=== PATIENT | female | born 1965 | race Caucasian/White ===

== ENCOUNTER 2016-10-07 17:04 | Emergency (ER) | payer OTHER ==
[~2016-10-07] VITALS: Ht 165.1 cm; Wt 80.5 kg
[~2016-10-07 17:04] MED LIST: CITA20TA11 PO; CITROMA PO; DOCU-144 PO; FERR-55 PO; GLYC1SUP92 PR; LOSA50TA6 PO
[2016-10-07 17:06] VITALS: Ht 165.1 cm; Wt 80.5 kg
[2016-10-07] MEDS ORDERED: BELLADONNA/PHENOBARBITAL TAB PO STA (19:54)
[2016-10-07] MEDS ORDERED: SOD CHLORIDE 0.9% 1,000 ML IV STA (19:54)
[2016-10-07] MEDS ORDERED: FAMOTIDINE 20 MG TAB PO STA (19:54)
[2016-10-07] MEDS ORDERED: KETOROLAC 15 MG INJ IV STA (19:54)
[2016-10-07] MEDS ORDERED: ONDANSETRON 4 MG INJ IV STA (19:54)
[2016-10-07] MEDS ORDERED: LIDOCAINE/MYLANTA 40 ML BTL PO STA (19:54)
[2016-10-07 20:02] LABS: URINE BLOOD (Dip) POC 1+ (NEGATIVE)
[2016-10-07 20:22] LABS: ADD SCAN DIFF NO
[2016-10-07 20:28] LABS: BASOPHIL # 0.1 10^3/ul (0.0-0.1); BASOPHILS % 0.8 % (0.0-2.0); EOSINOPHILS # 0.1 10^3/ul (0.0-0.5); EOSINOPHILS % 1.9 % (0.0-7.0); HEMATOCRIT 36.4 % (37.0-47.0); HEMOGLOBIN 11.3 g/dl (12.0-16.0); LYMPHOCYTES # 2.3 10^3/ul (0.8-2.9); LYMPHOCYTES % 35.7 % (15.0-51.0); MEAN CORPUSCULAR VOLUME 87.1 fl (82.0-101.0); MEAN PLATELET VOLUME 9.5 fl (7.4-10.4); MONOCYTE # 0.7 10^3/ul (0.3-0.9); MONOCYTES % 10.5 % (0.0-11.0); NEUTROPHIL # 3.3 10^3/ul (1.6-7.5); NEUTROPHILS % 50.9 % (39.0-77.0); PLATELET COUNT 323 10^3/UL (140-415); RED BLOOD COUNT 4.18 10^6/ul (4.20-5.40); RED CELL DISTRIBUTION WIDTH 12.7 % (11.5-14.5); WHITE BLOOD COUNT 6.5 10^3/ul (4.8-10.8)
[2016-10-07 20:29] LABS: ADD UMIC YES; URINE BILIRUBIN (Dip) NEGATIVE (NEGATIVE); URINE BLOOD (Dip) 1+ (NEGATIVE); URINE COLOR LT. YELLOW (YELLOW); URINE GLUCOSE (Dip) NEGATIVE (NEGATIVE); URINE KETONES (Dip) NEGATIVE (NEGATIVE); URINE LEUKOCYTE ESTERASE (Dip) NEGATIVE (NEGATIVE); URINE NITRITE (Dip) NEGATIVE (NEGATIVE); URINE TOTAL PROTEIN (Dip) NEGATIVE (NEGATIVE); URINE UROBILINOGEN (Dip) 0.2 E.U./dL (0.1-1.0)
[2016-10-07 20:35] LABS: ALBUMIN 4.4 g/dl (3.3-4.9)
--- NOTE | 2016-10-07 20:35 | RADRPT ---
PROCEDURE: CT abdomen and pelvis with. contrast. CLINICAL INDICATION: Abdominal pain. TECHNIQUE: Noncontrast CT examination of the abdomen and pelvis, with axial, sagittal and coronal reformatted images. CTDI: 15.18 mGy and DLP: 826.07 mGy-cm. COMPARISON: None. FINDINGS: CT abdomen: The lung bases are clear. The heart size is normal, without pericardial thickening or effusion. The liver is normal in size and density without focal mass or intrahepatic biliary dilatation. The spleen is normal in size and homogeneous in density. The stomach is partially collapsed, but is alexa ssly unremarkable. The pancreas as visualized is normal. The gallbladder and biliary tree are unre markable and there is no evidence for biliary dilatation. The adrenal glands are symmetric and norm al. The kidneys are symmetrically unremarkable as well. No renal calculus or obstructive uropathy o r mass lesion is seen. The aorta is of normal caliber. There is no retroperitoneal lymphadenopathy. The radha hepatis reg ion is clear. Mild to moderate small bowel ileus, otherwise nonspecific. CT pelvis: Mild to moderate small bowel ileus, otherwise nonspecific. Nonspecific right adnexal mass measures 5 2 x 50 x 34 mm and this may represent enlarged right ovary, otherwise nonspecific. Recommend ultras ound correlation. There is fluid in the endometrial cavity. Left ovary measures 37 x 34 x 24 mm. Th e pelvic organs are otherwise normal. The pelvic sidewalls and inguinal regions are clear. The sig moid colon and rectum are all unremarkable. No mass, lymphadenopathy, or free fluid is seen. No ac nisqually inflammation is seen. The appendix is unremarkable. The surrounding osseous structures are remarkable for mild degenerative spondylosis of the spine. N o osteolytic or osteoblastic lesion is detected. IMPRESSION: 1. 52 mm right adnexal mass suggest the right ovary and recommend ultrasound correlation. 2. No evident free fluid in the pelvis. 3. Nonspecific mild to moderate small bowel ileus. RPTAT: [facility] Physician Krystyna Date Time Electronically viewed and signed by Physician Krystyna on 10/07/2016 20:35 RS/
[2016-10-07 20:36] LABS: POTASSIUM 3.6 mmol/L (3.5-5.1)
[2016-10-07 20:38] LABS: ALBUMIN/GLOBULIN RATIO 1.25; CALCIUM 9.5 mg/dl (8.4-10.2); CREATININE 0.7 mg/dl (0.44-1.00); TOTAL PROTEIN 7.9 g/dl (6.1-8.1)
[2016-10-07 20:47] LABS: SQUAMOUS EPITHELIAL CELL,UR FEW
[2016-10-07 21:39] VITALS: TEMP 99.1
[2016-10-07] MEDS ORDERED: OXYC-279 PO (22:09)
--- NOTE | 2016-10-07 22:39 | RADRPT ---
PROCEDURE: Ultrasound pelvis CLINICAL INDICATION: Ovarian mass TECHNIQUE: Multiple orona scale and color Doppler images of the pelvis were obtained transabdominal ly and transvaginally. Images were reviewed PACS workstation COMPARISON: CT 10/07/2016 FINDINGS: The uterus is identified, measuring 10.6 x 6.2 x 6.6 cm. The endometrial canal is suboptimally visu alized , measured at up to 2.3 cm. The right ovary measures 5.5 x 3.5 x 3.7 cm, with a heterogeneous appearance. The left ovary measur es 3.1 x 2.0 x 2.4 cm. The ovaries appear unremarkable in echotexture. There is bilateral vascular flow identified. There is no evidence of free fluid. There is no abnormal adnexal mass. IMPRESSION: 1. Heterogeneous prominence of the right ovary. A discrete cystic mass is not identified. 6 week f ollow-up is recommended, or MRI correlation could be performed. 2. Suboptimally visualized endometrial canal, with questionable thickening. Follow-up is recommende d. RPTAT: HBST .Umberto Rascon MD, Date Time Electronically viewed and signed by .Umberto Rascon MD, on 10/07/2016 22:39 .T/
--- NOTE | 2016-10-07 22:45 | ERD ---
ER Documentation Chief Complaint Date/Time DATE: 10/07/16 TIME: 22:37 Chief Complaint AP X 1 MOS, DENIES NAUSEA, NO DIARRHEA HPI 51-year-old woman complains of lower pelvic pain and cramping 1 month, referred here by PMD for further evaluation. She states she has had intermittent weakness. She has had no weight loss, she has had subjective fevers and chills although has not taken her temperature, no vomiting or diarrhea, no dysuria, no complaints of chest pain or shortness of breath. Patient denies vaginal bleeding or vaginal discharge. ROS All systems reviewed and are negative except as per history of present illness. Medications Home Meds Active Scripts Oxycodone HCl/Acetaminophen (Percocet 5-325 mg Tablet) 1 Each Tablet, 1 EACH PO TID for PAIN LEVEL 6-10, #12 TAB Prov:SAHARA CORRAL MD 10/07/16 Glycerin* (Glycerin (Adult)*) 1 Each Supp.rect, 1 EACH SC DAILY Y for CONSTIPATION, #10 SUPP.RECT Prov:ESTEPHANIA ROWLAND MD 10/04/15 Magnesium Citrate* (Citroma*) 300 Ml Soln, 300 ML PO DAILY Y for CONSTIPATION, # 4 BOTTLE Prov:ESTEPHANIA ROWLAND MD 10/04/15 Reported Medications Citalopram Hydrobromide* (Celexa*) 20 Mg Tablet, 20 MG PO DAILY, #30 TAB 10/04/15 Docusate Sodium* (Colace*) 100 Mg Capsule, 100 MG PO BID, #60 CAP 07/02/15 Ferrous Sulfate* (Ferrous Sulfate*) 325 Mg Tablet, 325 MG PO BID, TAB 07/02/15 Losartan Potassium* (Losartan Potassium*) 50 Mg Tablet, 50 MG PO DAILY, TAB 07/02/15 Allergies Allergies: Coded Allergies: No Known Allergy (Unverified , 10/04/15) PMhx/Soc Hypertension History of Surgery: Yes (GYNO BX) Anesthesia Reaction: No Hx Neurological Disorder: No Hx Respiratory Disorders: No Hx Cardiac Disorders: Yes (HTN) Hx Psychiatric Problems: Yes (ANXIETY) Hx Miscellaneous Medical Probl: Yes (ANEMIA) Hx Alcohol Use: No Hx Substance Use: No Hx Tobacco Use: No Smoking Status: Never smoker FmHx Family History: No diabetes Physical Exam Vitals Vital Signs Date Time Temp Pulse Resp B/P Pulse Ox O2 Delivery O2 Flow Rate FiO2 10/07/16 21:39 98.1 10/07/16 21:39 99.1 10/07/16 21:38 98.0 10/07/16 17:06 99.2 93 18 177/89 99 Physical Exam GENERAL: Well-developed, well-nourished, well-hydrated, in no apparent distress , looks nontoxic in appearance, afebrile HEENT: Moist mucous membranes, pink conjunctiva, no cervical spine tenderness or step-off deformities, no goiter, no jaundice or icterus, extraocular movements intact without pain. No submandibular induration, and no pharyngeal erythema NEURO: Alert and oriented 3, cranial nerves II through XII intact bilaterally, pupils equal round reactive to light, no focal deficits or facial asymmetry, sensation intact distally Strength 5/5 in upper and lower extremities bilaterally CARDIAC: Regular rate and rhythm, no murmurs rubs or gallops LUNGS: Clear bilaterally no wheezing crackles or stridor ABDOMEN: Soft nontender, no guarding, no rigidity, no rebound, no psoas sign no obturator sign. Normoactive bowel sounds SKIN: Warm and dry to touch, no abrasions, contusions, or hematomas, no lacerations, no ecchymosis, no target lesions, and without ulcers EXTREMITIES: No clubbing cyanosis or edema, calves are bilaterally symmetrical, no Homans sign, no popliteal cord sign. Distal pulses equal and bilateral PSYCH: Normal affect without agitation or irritability Result Diagram: 10/07/16199910/07/161999 Results 24 hrs Laboratory Tests Test 10/07/16 20:00 10/07/16 20:01 White Blood Count 6.510^3/ul Red Blood Count 4.1810^6/ul Hemoglobin 11.3g/dl Hematocrit 36.4% Mean Corpuscular Volume 87.1fl Mean Corpuscular Hemoglobin 27.0pg Mean Corpuscular Hemoglobin Concent 31.0g/dl Red Cell Distribution Width 12.7% Platelet Count 54124^3/UL Mean Platelet Volume 9.5fl Neutrophils % 50.9% Lymphocytes % 35.7% Monocytes % 10.5% Eosinophils % 1.9% Basophils % 0.8% Nucleated Red Blood Cells % 0.0/100WBC Neutrophils # 3.310^3/ul Lymphocytes # 2.310^3/ul Monocytes # 0.710^3/ul Eosinophils # 0.110^3/ul Basophils # 0.110^3/ul Nucleated Red Blood Cells # 0.010^3/ul Urine Color LT. YELLOW Urine Clarity CLEAR Urine pH 6.0 Urine Specific Walker 1.025 Urine Ketones NEGATIVE Urine Nitrite NEGATIVE Urine Bilirubin NEGATIVE Urine Urobilinogen 0.2 E.U./dL Urine Leukocyte Esterase NEGATIVE Urine Microscopic RBC 2-5/HPF Urine Microscopic WBC 0-2/HPF Urine Squamous Epithelial Cells FEW Urine Hemoglobin 1+ Urine Glucose NEGATIVE% Urine Total Protein NEGATIVE Sodium Level 140mmol/L Potassium Level 3.6mmol/L Chloride Level 102mmol/L Carbon Dioxide Level 26mmol/L Anion Gap 16 Blood Urea Nitrogen 21mg/dl Creatinine 0.70mg/dl Glucose Level 93mg/dl Calcium Level 9.5mg/dl Total Bilirubin 0.0mg/dl Direct Bilirubin 0.00mg/dl Indirect Bilirubin 0.0mg/dl Aspartate Amino Transf (AST/SGOT) 27IU/L Alanine Aminotransferase (ALT/SGPT) 26IU/L Alkaline Phosphatase 95IU/L Total Protein 7.9g/dl Albumin 4.4g/dl Globulin 3.50g/dl Albumin/Globulin Ratio 1.25 Lipase 204U/L Bedside Urine pH (LAB) 6.0 Bedside Urine Protein (LAB) Negative Bedside Urine Glucose (UA) Negative Bedside Urine Ketones (LAB) Negative Bedside Urine Blood 1+ Bedside Urine Nitrite (LAB) Negative Bedside Urine Leukocyte Esterase (L Negative Current Medications Medications (Trade) Dose Ordered Sig/Joel Route PRN Reason Start Time Stop Time Status Last Admin Dose Admin Sodium Chloride (NS) 1,000 ml @ 1,000 mls/hr Q1H STAT IV 10/07/16 19:54 10/07/16 20:53 DC 10/07/16 20:43 Ondansetron HCl (Zofran Inj) 4 mg ONCE STAT IV 10/07/16 19:54 10/07/16 19:56 DC 10/07/16 20:43 Famotidine (Pepcid) 40 mg ONCE STAT PO 10/07/16 19:54 10/07/16 19:56 DC 10/07/16 20:44 Miscellaneous Medication (Gi Cocktail (2)) 40 ml ONCE STAT PO 10/07/16 19:54 4/4/17 19:56 DC 10/07/16 20:44 Belladonna/ Phenobarbital () 2 tab ONCE STAT PO 10/07/16 19:54 10/07/16 19:56 DC 10/07/16 20:44 Ketorolac Tromethamine (Toradol) 15 mg ONCE STAT IV 10/07/16 19:54 10/07/16 19:57 DC 10/07/16 20:44 Procedures/MDM IV line was established patient was placed on teletypesetter monitor rhythm strip revealed a sinus rhythm at about 80 bpm with upright P and T waves. Patient was afebrile, rectal temp was 99F. Patient did have some complaints of epigastric burning and I administered a GI cocktail 50 cc p.o., famotidine 40 mg p.o. with good results. Patient also received 1 L normal saline intravenously, Zofran 4 mg IV, and Toradol 15 mg IV with good response. CT scan of the abdomen and pelvis was performed revealing a right ovarian mass no other infectious or inflammatory pathology was noted. Please refer to radiologist dictation for full report. Nonobstetric ultrasound of the pelvis has been ordered results are pending I will follow-up. CBC was unremarkable, electrolyte revealed dehydration with a BUN/creatinine of 21/0.7, liver function tests are normal, urine analysis was negative for infection Differential diagnoses considered, included but not limited to acute coronary syndrome, pulmonary embolism, aortic dissection, abdominal aortic aneurysm, sepsis, stroke, meningitis, encephalitis, pneumonia, appendicitis, cholecystitis , bowel obstruction, pyelonephritis, nephrolithiasis, cystitis, as well as metabolic, hematologic, and electrolyte abnormalities. As well as abscess, cellulitis, fractures, and dislocations. Patient feels much better at this time, and vital signs are normal, symptoms have improved. I did give strict instructions to return to the ED if symptoms continue or worsen, patient will otherwise follow-up with primary care physician. Patient understood instructions and agreed to plan. Departure Diagnosis: Primary Impression: Ovarian mass, right Condition: Good Patient Instructions: Ovarian Cyst SAHARA CORRAL MD Oct 07, 2016 22:45
[2016-10-08 00:35] VITALS: BP 154/84; PULSE 66; RESP 18
== END 2016-10-08 00:33 | disposition home or self-care (01) ==
LOC: E/R 17:04
DX: N83.201 Unspecified ovarian cyst, right side (principal); I10 Essential (primary) hypertension
CPT/HCPCS: 36415; 74176; 76830; 76856; 80053; 81001; 81003; 83690; 85025; 87086; 96374; 96375; J1885; J2405; J7030; Z7502; Z7610

== ENCOUNTER 2017-10-29 09:44 | Emergency (ER) | END 2017-10-29 15:15 | disposition home or self-care (01) ==

== ENCOUNTER 2018-06-24 16:43 | Emergency (ER) | END 2018-06-24 19:04 | disposition home or self-care (01) ==

== ENCOUNTER 2018-10-10 17:18 | Emergency (ER) | payer OTHER ==
[~2018-10-10] VITALS: Ht 165.1 cm; Wt 85.3 kg
[~2018-10-10 17:18] MED LIST changes: +BENZ200C68 PO; -DOCU-144 PO; +FAMO-96 PO; +FLUT9.9S NASAL; +IBUP-1542 PO; +LORA10CA PO; +LOSA50TA14 PO; -LOSA50TA6 PO; +OXYC-279 PO; +PHEN177S43 MT; +SIME80TA53 PO
[2018-10-10 17:23] VITALS: Ht 165.1 cm; Wt 85.3 kg
[2018-10-10] MEDS ORDERED: FAMOTIDINE 20 MG TAB PO STA (19:15)
[2018-10-10] MEDS ORDERED: METOCLOPRAMIDE 10 MG INJ IV STA (19:15)
--- NOTE | 2018-10-10 20:49 | ERD ---
ER Documentation Chief Complaint Chief Complaint c/o left lower abd pain rad to back, also c/o epigastric pain HPI 53-year-old female presenting with left lower quadrant abdominal pain that radiates to her back. This pain has been going on for 4-5 days. It is intermittent, worse with movement and bending over. No associated nausea, vomiting, fever, chills, diarrhea, dysuria, hematuria. She has had associated constipation for a few days but has been passing a lot of gas. She also complains of belching and acid reflux. No vaginal discharge or pelvic pain. ROS All systems reviewed and are negative except as per history of present illness. Medications Home Meds Active Scripts Ibuprofen* (Motrin*) 600 Mg Tab, 600 MG PO Q6, #30 TAB Prov:JUDD MARS PA-C 06/24/18 Phenol* (Chloraseptic* Fonda) 177 Ml Fonda.pump, 2 SPRAY MT Q2H PRN for SORE THROAT, #1 BOTTLE Prov:JUDD MARS PA-C 06/24/18 Benzonatate* (Benzonatate*) 200 Mg Capsule, 200 MG PO TID PRN for COUGH, #15 CAP Prov:JUDD MARS PA-C 06/24/18 Fluticasone Propionate (Flonase Allergy Relief) 9.9 Ml Fonda.susp, 1 SPRAY NASAL BID, #1 BOTTLE TO EACH NOSTRIL Prov:JUDD MARS PA-C 06/24/18 Loratadine* (Claritin*) 10 Mg Capsule, 10 MG PO DAILY, #15 CAP Prov:JUDD MARS PA-C 06/24/18 Simethicone (GAS RELIEF) 80 Mg Tab.chew, 80 MG PO QID PRN for DISTEN MALISSA/GAS/BLOATING for 7 Days, TAB.CHEW Prov:DIANA GUNTER MD 10/29/17 Famotidine* (Pepcid*) 20 Mg Tablet, 20 MG PO BID, #30 TAB Prov:DIANA GUNTER MD 10/29/17 Oxycodone HCl/Acetaminophen (Percocet 5-325 mg Tablet) 1 Each Tablet, 1 EACH PO TID for PAIN LEVEL 6-10, #12 TAB Prov:SAHARA CORRAL MD 10/07/16 Glycerin* (Glycerin (Adult)*) 1 Each Supp.rect, 1 EACH MO DAILY PRN for CONSTIPATION, #10 SUPP.RECT Prov:ESTEPHANIA ROWLAND MD 10/04/15 Magnesium Citrate* (Citroma*) 300 Ml Soln, 300 ML PO DAILY PRN for CONSTIPATION, #4 BOTTLE Prov:ESTEPHANIA ROWLAND MD 10/04/15 Reported Medications Citalopram Hydrobromide* (Celexa*) 20 Mg Tablet, 20 MG PO DAILY, #30 TAB 10/04/15 Ferrous Sulfate* (Ferrous Sulfate*) 325 Mg Tablet, 325 MG PO BID, TAB 07/02/15 Losartan Potassium* (Losartan Potassium*) 50 Mg Tablet, 50 MG PO DAILY, TAB 07/02/15 Allergies Allergies: Coded Allergies: No Known Allergy (Unverified , 10/04/15) PMhx/Soc History of Surgery: Yes (GYNO BX) Anesthesia Reaction: No Hx Neurological Disorder: No Hx Respiratory Disorders: No Hx Cardiac Disorders: Yes (HTN) Hx Psychiatric Problems: Yes (ANXIETY) Hx Miscellaneous Medical Probl: Yes (ANEMIA, uterine fibroids) Hx Alcohol Use: No Hx Substance Use: No Hx Tobacco Use: No Smoking Status: Never smoker FmHx Family History: No diabetes Physical Exam Vitals Vital Signs Date Temp Pulse Resp B/P (MAP) Pulse Ox O2 O2 Flow FiO2 Time Delivery Rate 10/10/18 98.5 84 20 177/80 97 17:23 (112) Physical Exam Const: No acute distress Head: Atraumatic Eyes: Normal Conjunctiva ENT: Normal External Ears, Nose and Mouth. Neck: Full range of motion. No meningismus. Resp: Clear to auscultation bilaterally Cardio: Regular rate and rhythm, no murmurs Abd: Soft, non tender, left lower quadrant with tenderness to deep palpation without rebound or guarding. No masses. Normal bowel sounds Skin: No petechiae or rashes Back: No midline or flank tenderness Ext: No cyanosis, or edema Neur: Awake and alert Psych: Normal Mood and Affect Result Diagram: 10/10/18192110/10/181921 Results 24 hrs Laboratory Tests Test 10/10/18 19:22 10/10/18 20:10 White Blood Count 6.3 10^3/ul Red Blood Count 4.06 10^6/ul Hemoglobin 11.4 g/dl Hematocrit 35.3 % Mean Corpuscular Volume 86.9 fl Mean Corpuscular Hemoglobin 28.1 pg Mean Corpuscular Hemoglobin Concent 32.3 g/dl Red Cell Distribution Width 13.2 % Platelet Count 346 10^3/UL Mean Platelet Volume 9.8 fl Immature Granulocytes % 0.200 % Neutrophils % 56.4 % Lymphocytes % 28.5 % Monocytes % 10.3 % Eosinophils % 4.1 % Basophils % 0.5 % Nucleated Red Blood Cells % 0.0 /100WBC Immature Granulocytes # 0.010 10^3/ul Neutrophils # 3.6 10^3/ul Lymphocytes # 1.8 10^3/ul Monocytes # 0.7 10^3/ul Eosinophils # 0.3 10^3/ul Basophils # 0.0 10^3/ul Nucleated Red Blood Cells # 0.0 10^3/ul Sodium Level 142 mmol/L Potassium Level 3.7 mmol/L Chloride Level 103 mmol/L Carbon Dioxide Level 28 mmol/L Anion Gap 11 Blood Urea Nitrogen 19 mg/dl Creatinine 0.74 mg/dl Est Glomerular Filtrat Rate mL/min > 60 mL/min Glucose Level 87 mg/dl Calcium Level 9.6 mg/dl Urine Color YELLOW Urine Clarity SLIGHTLY CLOUDY Urine pH 6.0 Urine Specific [place] 1.014 Urine Ketones NEGATIVE mg/dL Urine Nitrite NEGATIVE mg/dL Urine Bilirubin NEGATIVE mg/dL Urine Urobilinogen NEGATIVE mg/dL Urine Leukocyte Esterase NEGATIVE Elliott/ul Urine Microscopic RBC 2 /HPF Urine Microscopic WBC 2 /HPF Urine Squamous Epithelial Cells FEW /HPF Urine Bacteria FEW /HPF Urine Hemoglobin 2+ mg/dL Urine Glucose NEGATIVE mg/dL Urine Total Protein NEGATIVE mg/dl Current Medications Medications Dose Sig/Joel Start Time Status Last (Trade) Ordered Route PRN Stop Time Admin Dose Reason Admin 10 mg ONCE STAT 10/10/18 DC 10/10/18 Metoclopramid IV 19:15 10/10/18 19:28 e HCl 19:17 (Reglan) Famotidine 20 mg ONCE STAT 10/10/18 DC 10/10/18 (Pepcid) PO 19:15 10/10/18 19:28 19:17 Procedures/MDM EMERGENT LABS AND DIAGNOSTIC STUDIES: Lab Results above were reviewed and interpreted by me. CBC: no anemia or evidence of infection CMP: No evidence of clinically significant electrolyte abnormality, acidosis, renal failure, hypoglycemia UA: no evidence of infection. Microscopic hematuria Radiology Results as interpreted by Radiology below were reviewed by Davide Bowser MD: CT abdomen and pelvis shows no acute abnormalities. Right adnexal mass noted, patient aware of this and seeing a round up ring hand Initial Nursing notes reviewed. Previous Medical Records requested via the Electronic Health Record. EMERGENCY DEPARTMENT COURSE / MEDICAL DECISION MAKING: At this moment the etiology of the abdominal pain is unknown. The patients vitals have been noted and are currently afebrile and hemodynamically stable. The workup, physical exam and observation period do not indicate a serious cause to the pain. CT was done and the patient does not appear to have appendicitis, diverticular disease, intestinal obstruction, vascular abnormality or other life threatening condition. I have a low suspicion for aortic dissection. The patients symptoms have remained stable while in the ED and the patient remains hemodynamically stable. Patient was able to tolerate PO. The current assessment has been explained to the patient including the fact that the etiology of the pain cannot be ruled out with certainty. Patient was advised that in the event this is early in the process of a more serious condition they may expect their symptoms to worsen and if so to return to the emergency department immediately. Patient was advised to follow up with primary care physician as soon as possible for re-evaluation within the next 1-2 days. All of the patients questions were answered. Patient verbalized understanding of plan and agrees. Advised to return to the ER for reevaluation within 12 hours if symptoms worsen. Patient's blood pressure was elevated (>120/80) but appears stable without evidence of hypertensive emergency or urgency. The patient was counseled about the risks of hypertension and urged to pursue outpatient monitoring and therapy within a week with their primary care physician. Departure Diagnosis: Primary Impression: Abdominal pain Abdominal location: left lower quadrant Qualified Codes: R10.32 - Left lower quadrant pain Additional Impression: Constipation Constipation type: unspecified constipation type Qualified Codes: K59.00 - Constipation, unspecified Condition: Stable Patient Instructions: Abdominal Pain, Constipation (Adult) Referrals: TIM FERRARO MD (PCP) Additional Instructions: Si yosi sintomas emperoan, regresa a la brandan de emergencias. ARTURO BOWSER MD Oct 10, 2018 20:47
[2018-10-10 20:50] VITALS: BP 155/81; PULSE 78; RESP 23
== END 2018-10-10 20:52 | disposition home or self-care (01) ==
LOC: E/R 17:18
DX: R10.32 Left lower quadrant pain (principal); I10 Essential (primary) hypertension; K59.00 Constipation, unspecified
CPT/HCPCS: 36415; 74176; 80048; 81001; 85025; 96374; J2765; Z7502; Z7610

== ENCOUNTER 2018-12-03 21:31 | Emergency (ER) | payer OTHER ==
[~2018-12-03] VITALS: Ht 167.6 cm; Wt 84.1 kg
[2018-12-03 21:34] VITALS: BP 178/86; PULSE 86; RESP 18; Ht 167.6 cm; Wt 84.1 kg
--- NOTE | 2018-12-03 23:35 | ERD ---
ER Documentation Chief Complaint Chief Complaint left ingrown toe nail x 4 days HPI This is a 53-year-old female who presents here in emergency department with complaints of left big toe ingrown that started 4 days ago. LMP: Denies headache, head injury, loss of consciousness, dizziness, neck pain, neck stiffness, throat pain, difficulty swallowing, difficulty breathing lying flat, shoulder pain, chest pain, back pain, abdominal pain, nausea, vomiting, constipation, diarrhea, urinary symptoms, or possibility being , loss of bowel and bladder control, trauma, injury, falls, difficulty walking due to pain, numbness or tingling sensation, calf pain, recent travel, recent major surgery in the last 3 weeks, calf pain, recent long travel, recent exposure to any illness, recent antibiotic use in the last 3 months, fever, chills, seizures. Past medical history: Surgical history: Social: Denies smoking, use of alcoholic beverages, use of illegal drugs. ROS All systems reviewed and are negative except as per history of present illness. Medications Home Meds Active Scripts Omeprazole* (Omeprazole*) 40 Mg Capsule.dr, 40 MG PO DAILY, #30 CAP Prov:PASILABAN,LAVELLEAR F 12/04/18 Ibuprofen* (Motrin*) 800 Mg Tab, 800 MG PO Q6H PRN for PAIN AND OR ELEVATED TEMP, #30 TAB Prov:PASILABANLAVELLEAR F 12/04/18 Terbinafine Hcl* (Lamisil*) 1% - 30 Gm Cr, 1 APPLIC TOP DAILY for 7 Days, #1 TUB Prov:PASILAAMBREENLAVELLEAR F 12/04/18 Cephalexin* (Keflex*) 500 Mg Capsule, 500 MG PO TID for 7 Days, CAP Prov:PASILABAN,LAVELLEAR F 12/04/18 Ibuprofen* (Motrin*) 600 Mg Tab, 600 MG PO Q6, #30 TAB Prov:JUDD MARS PA-C 06/24/18 Phenol* (Chloraseptic* [place]) 177 Ml [place].pump, 2 SPRAY MT Q2H PRN for SORE THROAT, #1 BOTTLE Prov:JUDD MARS PA-C 06/24/18 Benzonatate* (Benzonatate*) 200 Mg Capsule, 200 MG PO TID PRN for COUGH, #15 CAP Prov:JUDD MARS PA-C 06/24/18 Fluticasone Propionate (Flonase Allergy Relief) 9.9 Ml [place].susp, 1 SPRAY NASAL BID, #1 BOTTLE TO EACH NOSTRIL Prov:JUDD MARS PA-C 06/24/18 Loratadine* (Claritin*) 10 Mg Capsule, 10 MG PO DAILY, #15 CAP Prov:JUDD MARS PA-C 06/24/18 Simethicone (GAS RELIEF) 80 Mg Tab.chew, 80 MG PO QID PRN for DISTENSION/GAS/BLOATING for 7 Days, TAB.CHEW Prov:DIANA GUNTER MD 10/29/17 Famotidine* (Pepcid*) 20 Mg Tablet, 20 MG PO BID, #30 TAB Prov:DIANA GUNTER MD 10/29/17 Oxycodone HCl/Acetaminophen (Percocet 5-325 mg Tablet) 1 Each Tablet, 1 EACH PO TID for PAIN LEVEL 6-10, #12 TAB Prov:SAHARA CORRAL MD 10/07/16 Glycerin* (Glycerin (Adult)*) 1 Each Supp.rect, 1 EACH [place] DAILY PRN for CONSTIPATION, #10 SUPP.RECT Prov:ESTEPHANIA ROWLAND MD 10/04/15 Magnesium Citrate* (Citroma*) 300 Ml Soln, 300 ML PO DAILY PRN for CONSTIPATION, #4 BOTTLE Prov:ESTEPHANIA ROWLAND MD 10/04/15 Reported Medications Citalopram Hydrobromide* (Celexa*) 20 Mg Tablet, 20 MG PO DAILY, #30 TAB 10/04/15 Ferrous Sulfate* (Ferrous Sulfate*) 325 Mg Tablet, 325 MG PO BID, TAB 07/02/15 Losartan Potassium* (Losartan Potassium*) 50 Mg Tablet, 50 MG PO DAILY, TAB 07/02/15 Allergies Allergies: Coded Allergies: No Known Allergy (Unverified , 10/04/15) PMhx/Soc History of Surgery: Yes (GYNO BX) Anesthesia Reaction: No Hx Neurological Disorder: No Hx Respiratory Disorders: No Hx Cardiac Disorders: Yes (HTN) Hx Psychiatric Problems: Yes (ANXIETY) Hx Miscellaneous Medical Probl: Yes (ANEMIA, uterine fibroids) Hx Alcohol Use: No Hx Substance Use: No Hx Tobacco Use: No Smoking Status: Never smoker Physical Exam Vitals Physical Exam Const: No acute distress Head: Atraumatic Eyes: Normal Conjunctiva ENT: Normal External Ears, Nose and Mouth. Neck: Full range of motion. No meningismus. Resp: Clear to auscultation bilaterally Cardio: Regular rate and rhythm, no murmurs Abd: Soft, non tender, non distended. Normal bowel sounds Skin: No petechiae or rashes Back: No midline or flank tenderness Ext: No cyanosis, or edema. Left big toe: Has a swelling/tenderness to medial and lateral side. Its nail has mild deformity that is consistent with onychomycosis. No subungual hematoma. Its joints has good and full range of motion. Left pedal pulses within normal limits. Capillary refill to left lower extremity is less than 2 seconds. No neurovascular deficit. Ambulatory with steady gait. Neur: Awake and alert. No neurological deficit. Psych: Normal Mood and Affect Results 24 hrs Current Medications Medications Dose Sig/Joel Start Time Status Last (Trade) Ordered Route PRN Stop Time Admin Dose Reason Admin 1 tab ONCE ONCE 12/04/18 DC 12/03/18 Acetaminophen PO 00:00 12/04/18 23:44 / 00:01 Hydrocodone Bitart (Morris (10/325)) Procedures/MDM Diagnostic tests: Clinical exam. Treatment: Morris. Re-evaluation: Denies pain. No neurovascular deficit. Ambulatory with steady gait. Differential diagnosis I have low suspicion for open fracture, subungual hematoma, paronychia, sepsis, osteomyelitis, deep space infection, necrotizing fasciitis. Final diagnosis: Onychomycosis. Ingrown toenail. Prescription: Keflex. Lamisil. Motrin. Omeprazole. Follow-up with PCP in the next 24-48 hours. Follow-up with clinical veterinarian in the next 24 to 48 hours. Come back here in the emergency department for any new symptoms or any worsening symptoms. All questions and concerns were answered. Patient and family members verbalized understanding and agreed with plan of care. Hemodynamically stable on discharge. Departure Diagnosis: Primary Impression: Onychomycosis Additional Impression: Ingrown left big toenail Condition: Stable Additional Instructions: Follow-up with PCP in the next 24-48 hours. Follow-up with clinical veterinarian in the next 24 to 48 hours. Come back here in the emergency department for any new symptoms or any worsening symptoms. CASTRO COLUNGA December 03, 2018 23:35
[2018-12-04] MEDS ORDERED: HYDROCODONE/APAP (10/325) TAB PO ONE
[2018-12-04] MEDS ORDERED: CEPH-443 PO (00:10)
[2018-12-04] MEDS ORDERED: IBUP800T48 PO (00:11)
[2018-12-04] MEDS ORDERED: LAM1CR24 TOP (00:11)
[2018-12-04] MEDS ORDERED: OMEP40CA6 PO (00:12)
== END 2018-12-04 00:33 | disposition home or self-care (01) ==
LOC: FTE 21:31
DX: B35.1 Tinea unguium (principal); I10 Essential (primary) hypertension
CPT/HCPCS: Z7502; Z7610; 99283

== ENCOUNTER 2019-02-03 11:20 | Day surgery (SDC) | payer OTHER ==
[~2019-02-03] VITALS: Ht 162.6 cm; Wt 81.0 kg
[~2019-02-03 11:20] MED LIST changes: +CEPH-443 PO; +IBUP800T48 PO; +LAM1CR24 TOP; +OMEP40CA6 PO
[2019-02-03 12:13] VITALS: Ht 162.6 cm; Wt 81.0 kg
[2019-02-03] MEDS ORDERED: PROPOFOL 200 MG INJ ONE (14:02)
[2019-02-03] MEDS ORDERED: LIDOCAINE 2% (SDV) 5 ML INJ ONE (14:02)
--- NOTE | 2019-02-03 14:02 | PREAC ---
Date/Time of Note Date/Time of Note DATE: 02/03/19 TIME: 13:59 Anesthesia Eval and Record Evaluation Time Pre-Procedure Interview DATE: 02/03/19 TIME: 13:59 Age 53 Sex female NPO: 8 hrs Preoperative diagnosis abdominal pain, iron def anemia Planned procedure EGD, COLONOSCOPY Past Medical History Past Medical History: Includes (FATTY LIVER) Cardio: HTN GI: Obesity Psych: Anxiety Surgery & Anesthesia Issues No known issue Meds Anticoagulation: No Beta Xavier within 24 hr: No Reason Beta Xavier not given: Pt. not on B-Xavier Reported Medications Citalopram Hydrobromide* (Celexa*) 20 Mg Tablet, 20 MG PO DAILY, #30 TAB 10/04/15 Losartan Potassium* (Losartan Potassium*) 50 Mg Tablet, 50 MG PO DAILY, TAB 07/02/15 Discontinued Reported Medications Ferrous Sulfate* (Ferrous Sulfate*) 325 Mg Tablet, 325 MG PO BID, TAB 07/02/15 Discontinued Scripts Omeprazole* (Omeprazole*) 40 Mg Capsule.dr, 40 MG PO DAILY, #30 CAP Prov:PASILABAN,KLAR F 12/04/18 Ibuprofen* (Motrin*) 800 Mg Tab, 800 MG PO Q6H PRN for PAIN AND OR ELEVATED TEMP, #30 TAB Prov:PASILABAN,KLAR F 12/04/18 Terbinafine Hcl* (Lamisil*) 1% - 30 Gm Cr, 1 APPLIC TOP DAILY for 7 Days, #1 TUB Prov:PASILABAN,KLAR F 12/04/18 Cephalexin* (Keflex*) 500 Mg Capsule, 500 MG PO TID for 7 Days, CAP Prov:PASILABAN,KLAR F 12/04/18 Ibuprofen* (Motrin*) 600 Mg Tab, 600 MG PO Q6, #30 TAB Prov:JUDD MARS PA-C 06/24/18 Phenol* (Chloraseptic* [place]) 177 Ml [place].pump, 2 SPRAY MT Q2H PRN for SORE THROAT, #1 BOTTLE Prov:JUDD MARS PA-C 06/24/18 Benzonatate* (Benzonatate*) 200 Mg Capsule, 200 MG PO TID PRN for COUGH, #15 CAP Prov:JUDD MARS PA-C 06/24/18 Fluticasone Propionate (Flonase Allergy Relief) 9.9 Ml [place].susp, 1 SPRAY NASAL BID, #1 BOTTLE TO EACH NOSTRIL Prov:JUDD MARS PA-C 06/24/18 Loratadine* (Claritin*) 10 Mg Capsule, 10 MG PO DAILY, #15 CAP Prov:JUDD MARS PA-C 06/24/18 Simethicone (GAS RELIEF) 80 Mg Tab.chew, 80 MG PO QID PRN for DISTENSION/GAS/BLOATING for 7 Days, TAB.CHEW Prov:DIANA GUNTER MD 10/29/17 Famotidine* (Pepcid*) 20 Mg Tablet, 20 MG PO BID, #30 TAB Prov:DIANA GUNTER MD 10/29/17 Oxycodone HCl/Acetaminophen (Percocet 5-325 mg Tablet) 1 Each Tablet, 1 EACH PO TID for PAIN LEVEL 6-10, #12 TAB Prov:SAHARA CORRAL MD 10/07/16 Glycerin* (Glycerin (Adult)*) 1 Each Supp.rect, 1 EACH [place] DAILY PRN for CONSTIPATION, #10 SUPP.RECT Prov:ESTEPHANIA ROWLAND MD 10/04/15 Magnesium Citrate* (Citroma*) 300 Ml Soln, 300 ML PO DAILY PRN for CONSTIPATION, #4 BOTTLE Prov:ESTEPHANIA ROWLAND MD 10/04/15 Meds reviewed: Yes Allergies Coded Allergies: No Known Allergy (Unverified , 10/04/15) Allergies Reviewed: Yes Labs/Studies Labs Reviewed: Reviewed by anesthesiologist test: Negative Pre-procedure Exam Airway: Adequate mouth opening, Adequate thyromental dist Mallampati: Mallampati II Teeth: Normal Lung: Normal Heart: Normal ASA Physical Status ASA physical status: 2 Emergency: None Planned Anesthetic General/MAC: MAC Planned Pain Management Parenteral pain med Pre-operative Attestations Prior to commencing anesthesia and surgery, the patient was re-evaluated, there was verification of: *The patient's identity *The results of appropriate recent lab work and preoperative vital signs *The above evaluation not changing prior to induction *Anesthetic plan, risk benefits, alternative and complications discussed with patient/family; questions answered; patient/family understands, accepts and wis hes to proceed. Josué Montoya M.D. Feb 03, 2019 14:01
[2019-02-03 14:07] VITALS: BP 140/77; PULSE 74; RESP 11
[2019-02-03] MEDS ORDERED: FENTAnyl 50 MCG/ML VIAL ONE (14:12)
--- NOTE | 2019-02-03 14:47 | PAC ---
Date/Time of Note Date/Time of Note DATE: 02/03/19 TIME: 14:46 Post-Anesthesia Notes Post-Anesthesia Note Last documented vital signs Vital Signs Date Temp Pulse Resp B/P (MAP) Pulse Ox O2 O2 Flow FiO2 Time Delivery Rate 02/03/19 98.5 74 11 140/77 100 Room Air 14:07 (98) Activity: WNL Respiratory function: WNL Cardiovascular function: WNL Mental status: Baseline Pain reasonably controlled: Yes Hydration appropriate: Yes Nausea/Vomiting absent: Yes Josué Montoya M.D. Feb 03, 2019 14:46
[2019-02-03 15:06] VITALS: BP 132/74; RESP 15
== END 2019-02-03 16:12 | disposition home or self-care (01) ==
LOC: GIL 11:20
PROVIDERS: ATTEND Internal Medicine Gastroenterology
DX: K64.8 Other hemorrhoids (principal); D50.9 Iron deficiency anemia, unspecified; K44.9 Diaphragmatic hernia without obstruction or gangrene; K21.9 Gastro-esophageal reflux disease without esophagitis; I10 Essential (primary) hypertension
CPT/HCPCS: 43239; 45380; 84703; 88305; J3010; Z7610